=== PATIENT | male | born 1975 | race Caucasian/White ===

== ENCOUNTER 2024-04-11 17:36 | Emergency (ER) | payer SELFPAY ==
[~2024-04-11] VITALS: Ht 185.4 cm; Wt 64.0 kg
[2024-04-11 17:41] VITALS: BP 124/75; PULSE 90; RESP 18; TEMP 98.2; O2SAT 98
== END 2024-04-11 20:58 | disposition home or self-care (01) ==
LOC: ER 17:36
DX: F10.129 Alcohol abuse with intoxication, unspecified (principal); Y90.9 Presence of alcohol in blood, level not specified
CPT/HCPCS: 99283